=== PATIENT | female | born 1990 | race Caucasian/White ===

== ENCOUNTER 2018-05-29 15:57 | Emergency (ER) | payer OTHER ==
[2018-05-29] MEDS: METHYLPREDNISOLONE 125 MG INJ IV (16:17)
[2018-05-29] MEDS: LORAZEPAM 2 MG INJ IV (16:17)
[2018-05-29] MEDS: FAMOTIDINE 20 MG INJ IV (16:17)
[2018-05-29] MEDS: EPINEPHrine 1 MG INJ IM ×2 (16:18→16:49)
[2018-05-29] MEDS: DIPHENHYDRAMINE 50 MG INJ IV (16:19)
[2018-05-29] MEDS: ALBUTEROL 0.083% (NEB) 2.5 MG/3 ML AMP INH (16:19)
== END 2018-05-29 17:53 | disposition home or self-care (01) ==
LOC: E/R 15:57
DX: T78.3XXA Angioneurotic edema, initial encounter (principal); T78.2XXA Anaphylactic shock, unspecified, initial encounter; R40.2252 Coma scale, best verbal response, oriented, at arrival to emergency department; R40.2362 Coma scale, best motor response, obeys commands, at arrival to emergency department; R40.2142 Coma scale, eyes open, spontaneous, at arrival to emergency department
CPT/HCPCS: 94644; 96372; 96374; 96375; 99284-25